=== PATIENT | female | born 1995 | race Caucasian/White ===

== ENCOUNTER 2017-06-18 13:16 | Emergency (ER) | payer SELFPAY ==
[2017-06-18 13:27] VITALS: BP 146/94
[2017-06-18] MEDS ORDERED: PENI500T PO (13:29)
[2017-06-18] MEDS ORDERED: NAPR500T PO (13:29)
--- NOTE | 2017-06-18 13:29 | PHYS DOC ---
Past Medical History Past Medical History: No Pertinent History Past Surgical History: No Surgical History Alcohol Use: None Drug Use: None Adult General Chief Complaint Chief Complaint: DENTAL PROBLEM HPI HPI Patient is a 22 year old female presents to the emergency department with complaints of right upper dental pain. Patient states she's had discomfort for several weeks but is noticed more redness and swelling to the gums. She reports no fever or difficulty with swelling phonation. Review of Systems Review of Systems Constitutional: Denies fever or chills [] Eyes: Denies change in visual acuity, redness, or eye pain [] HENT: Denies nasal congestion or sore throat; complaining of dental pain [] Respiratory: Denies cough or shortness of breath [] Cardiovascular: No additional information not addressed in HPI [] GI: Denies abdominal pain, nausea, vomiting, bloody stools or diarrhea [] : Denies dysuria or hematuria [] Musculoskeletal: Denies back pain or joint pain [] Integument: Denies rash or skin lesions [] Neurologic: Denies headache, focal weakness or sensory changes [] Endocrine: Denies polyuria or polydipsia [] Allergies Allergies Allergies Coded Allergies Type Severity Reaction Last Updated Verified No Known Drug Allergies 09/14/14 No Physical Exam Physical Exam Constitutional: Well developed, well nourished, no acute distress, non-toxic appearance. [] HENT: Normocephalic, atraumatic, bilateral external ears normal, oropharynx moist, right lower teeth, multiple with repair, all teeth are tender. The surrounding gingiva is erythematous. No oral exudates, nose normal. [] Eyes: PERRLA, EOMI, conjunctiva normal, no discharge. [] Neck: Normal range of motion, no tenderness, supple without lymphadenopathy, no stridor. [] Cardiovascular:Heart rate regular rhythm, no murmur [] Lungs & Thorax: Bilateral breath sounds clear to auscultation [ Neurologic: Alert and oriented X 3, normal motor function, normal sensory function, no focal deficits noted. [] Psychologic: Affect normal, judgement normal, mood normal. [] EKG EKG [] Radiology/Procedures Radiology/Procedures [] Course & Med Decision Making Course & Med Decision Making Pertinent Labs and Imaging studies reviewed. (See chart for details) [] Dragon Disclaimer Dragon Disclaimer This electronic medical record was generated, in whole or in part, using a voice recognition dictation system. Departure Departure Impression: Primary Impression: Gingivitis Disposition: 01 HOME, SELF-CARE Condition: STABLE Referrals: UNKNOWN PCP NAME (PCP) [facility] Patient Instructions: Gingivitis Scripts Penicillin V Potassium (PENICILLIN V POTASSIUM) 500 Mg Tablet 1 TAB PO QID, #40 TAB Prov: DANIEL MCKINNON APRN 06/18/17 Naproxen (NAPROSYN) 500 Mg Tablet 500 MG PO BID, #20 TAB Prov: DANIEL MCKINNON APRN 06/18/17 DANIEL MCKINNON APRN Jun 18, 2017 13:29
== END 2017-06-18 13:32 | disposition home or self-care (01) ==
LOC: ER 13:16
DX: K05.10 Chronic gingivitis, plaque induced (principal)
CPT/HCPCS: 99283

== ENCOUNTER 2019-02-17 17:50 | Emergency (ER) | payer SELFPAY ==
[~2019-02-17] VITALS: Ht 157.5 cm; Wt 63.5 kg
[~2019-02-17 17:50] MED LIST: NAPR-683 PO; PENI500T PO
[2019-02-17 18:21] VITALS: BP 136/89
[2019-02-17] MEDS ORDERED: fentaNYL PF VIAL 100 MCG/2 ML VIAL IM ONE (18:30)
[2019-02-17] MEDS ORDERED: ONDANSETRON PF 4 MG/2 ML VIAL. IV ONE (18:30)
[2019-02-17 18:38] LABS: BILIRUBIN,URINE NEGATIVE (NEG); CLARITY,URINE CLEAR; COLOR,URINE YELLOW; NITRITE,URINE NEGATIVE (NEG); PROTEIN,URINE NEGATIVE (NEG-TRACE); UROBILINOGEN,URINE 0.2 mg/dL (0.2 mg/dL)
[2019-02-17 18:42] LABS: BACTERIA,URINE MANY /HPF (0-FEW); RBC,URINE 0 /HPF (0-2); SQUAMOUS EPITHELIAL CELL,UR MOD /LPF
[2019-02-17 18:57] LABS: BASO # 0.1 x10^3/uL (0.0-0.2); BASO % 1 % (0-3); EOS # 0.1 x10^3/uL (0.0-0.7); EOS % 2 % (0-3); HEMATOCRIT 38.8 % (36.0-47.0); HEMOGLOBIN 12.9 g/dL (12.0-15.5); LYMPH # 2.3 x10^3/uL (1.0-4.8); LYMPH % 35 % (24-48); MEAN CORPUSCULAR HEMOGLOBIN 29 pg (25-35); MEAN CORPUSCULAR HGB CONC 33 g/dL (31-37); MEAN CORPUSCULAR VOLUME 86 fL (79-100); MONO # 0.6 x10^3/uL (0.0-1.1); MONO % 9 % (0-9); NEUT # 3.6 x10^3uL (1.8-7.7); NEUT % 54 % (31-73); PLATELET COUNT 212 x10^3/uL (140-400); RED CELL DISTRIBUTION WIDTH 12.4 % (11.5-14.5); WHITE BLOOD COUNT 6.6 x10^3/uL (4.0-11.0)
--- NOTE | 2019-02-17 19:01 | PHYS DOC ---
Past Medical History Past Medical History: Endometriosis Past Surgical History: No Surgical History Additional Information: PT DENIES SMOKING, ALTHOUGH SMOKING HX IN CHART Alcohol Use: None Drug Use: None Adult General Chief Complaint Chief Complaint: ABDOMINAL PAIN HPI HPI Patient is a 23 year old female with history of endometriosis and kidney stones who presents with left sided flank pain onset yesterday. Pain radiates to left abdomen/pelvis. Pain is described as sharp rated moderate to severe and worse with position change and movement. Patient reports nausea but denies vomiting. Reports urinary frequency urgency and hematuria. Patient is currently on her menstrual period. No fever chills or sweats. No other acute symptoms or complaints. No prior abdominal surgeries.] Review of Systems Review of Systems Review of symptoms as per history of present illness. All other review symptoms are negative. All other systems were reviewed and found to be within normal limits, except as documented in this note. Current Medications Current Medications Current Medications Medications (Trade) Dose Ordered Sig/Daniella Start Time Stop Time Status Last Admin Dose Admin Fentanyl Citrate (Fentanyl 2ml Vial) 75 mcg 1X ONCE 02/17/19 18:30 02/17/19 18:35 DC 02/17/19 19:00 75 MCG Ketorolac Tromethamine (Toradol 15mg Vial) 15 mg 1X ONCE 02/17/19 19:15 02/17/19 19:16 Cancel Ketorolac Tromethamine (Toradol 30mg Vial) 30 mg 1X ONCE 02/17/19 20:00 02/17/19 20:03 DC Ondansetron HCl (Zofran) 4 mg 1X ONCE 02/17/19 18:30 02/17/19 18:35 DC 02/17/19 18:57 4 MG Allergies Allergies Allergies Coded Allergies Type Severity Reaction Last Updated Verified No Known Drug Allergies 09/14/14 No Physical Exam Physical Exam Constitutional: Well developed, alert discomfort secondary to pain, antalgic gait. [] HENT: Normocephalic, atraumatic, bilateral external ears normal, oropharynx moist, no oral exudates, nose normal. [] Eyes: PERRLA, EOMI, conjunctiva normal, no discharge. [] Neck: Normal range of motion, no tenderness, supple, no stridor. [] Cardiovascular:Heart rate regular rhythm, no murmur [] Lungs & Thorax: Bilateral breath sounds clear to auscultation [] Abdomen: Bowel sounds normal, soft, mild left lower quadrant pain, tenderness. [] Skin: Warm, dry, no erythema. [] Back: No CVA tenderness. [] Extremities: No tenderness, no cyanosis, no clubbing, ROM intact, no edema. [] Neurologic: Alert and oriented X 3, normal motor function, normal sensory function, no focal deficits noted. [] Psychologic: Affect normal, judgement normal, mood normal. [] Current Patient Data Vital Signs Vital Signs Date Time Temp Pulse Resp B/P (MAP) Pulse Ox O2 Delivery O2 Flow Rate FiO2 02/17/19 19:00 18 95 Room Air 02/17/19 18:21 98.2 94 136/89 (105) 98.2 Lab Values Laboratory Tests Test 02/17/19 18:00 02/17/19 18:01 02/17/19 18:44 Urine Collection Type Unknown Urine Color Yellow Urine Clarity Clear Urine pH 5.0 Urine Specific [place] >=1.030 Urine Protein Negative mg/dL (NEG-TRACE) Urine Glucose (UA) Negative mg/dL (NEG) Urine Ketones (Stick) Negative mg/dL (NEG) Urine Blood Negative (NEG) Urine Nitrite Negative (NEG) Urine Bilirubin Negative (NEG) Urine Urobilinogen Dipstick 0.2 mg/dL (0.2 mg/dL) Urine Leukocyte Esterase Negative (NEG) Urine RBC 0 /HPF (0-2) Urine WBC 1-4 /HPF (0-4) Urine Squamous Epithelial Cells Mod /LPF Urine Bacteria Many /HPF (0-FEW) Urine Mucus Marked /LPF POC Urine HCG, Qualitative Hcg negative (Negative) White Blood Count 6.6 x10^3/uL (4.0-11.0) Red Blood Count 4.50 x10^6/uL (3.50-5.40) Hemoglobin 12.9 g/dL (12.0-15.5) Hematocrit 38.8 % (36.0-47.0) Mean Corpuscular Volume 86 fL (79-100) Mean Corpuscular Hemoglobin 29 pg (25-35) Mean Corpuscular Hemoglobin Concent 33 g/dL (31-37) Red Cell Distribution Width 12.4 % (11.5-14.5) Platelet Count 212 x10^3/uL (140-400) Neutrophils (%) (Auto) 54 % (31-73) Lymphocytes (%) (Auto) 35 % (24-48) Monocytes (%) (Auto) 9 % (0-9) Eosinophils (%) (Auto) 2 % (0-3) Basophils (%) (Auto) 1 % (0-3) Neutrophils # (Auto) 3.6 x10^3uL (1.8-7.7) Lymphocytes # (Auto) 2.3 x10^3/uL (1.0-4.8) Monocytes # (Auto) 0.6 x10^3/uL (0.0-1.1) Eosinophils # (Auto) 0.1 x10^3/uL (0.0-0.7) Basophils # (Auto) 0.1 x10^3/uL (0.0-0.2) Maternal Serum HCG Beta Subunit < 1 mIU/mL (0-5) Sodium Level 141 mmol/L (136-145) Potassium Level 3.5 mmol/L (3.5-5.1) Chloride Level 105 mmol/L (98-107) Carbon Dioxide Level 27 mmol/L (21-32) Anion Gap 9 (6-14) Blood Urea Nitrogen 10 mg/dL (7-20) Creatinine 0.9 mg/dL (0.6-1.0) Estimated GFR (Cockcroft-Gault) 76.3 Glucose Level 56 mg/dL (70-99) L Calcium Level 8.9 mg/dL (8.5-10.1) Laboratory Tests 02/17/19 18:44 Laboratory Tests 02/17/19 18:44 EKG EKG [] Radiology/Procedures Radiology/Procedures [CT abdomen pelvis without contrast: S shaped thoracolumbar spine, no acute abnormalities per radiology report] Course & Med Decision Making Course & Med Decision Making Pertinent Labs and Imaging studies reviewed. (See chart for details) [Patient with back pain, mild pelvic pain, tenderness, no acute findings on CT or lab. Patient does have back pain with scoliosis and chronic pelvic pain related to endometriosis, possibly contributing to current symptoms. Recommend supportive care, watchful waiting and close PCP follow-up. Return precautions reviewed. Patient verbalizes understanding and agreement with discharge instructions prior to departure.] Dragon Disclaimer Dragon Disclaimer This electronic medical record was generated, in whole or in part, using a voice recognition dictation system. Departure Departure Impression: Primary Impression: Lt flank pain Disposition: 01 HOME, SELF-CARE Condition: IMPROVED Referrals: UNKNOWN PCP NAME (PCP) Patient Instructions: Flank Pain, [id number] Additional Instructions: You were evaluated in the emergency department for flank pain. Lab, imaging studies were performed. No diagnosis was made. Please take ibuprofen for pain, and tramadol as Flexeril as needed for additional relief. Take daily laxative to prevent constipation. Follow-up with your PCP in 2-3 days for reevaluation. Return to the ED if new or worsening symptoms. Scripts Cyclobenzaprine Hcl (CYCLOBENZAPRINE HCL) 10 Mg Tablet 1 TAB PO TID, #30 TAB Prov: SARAH MENDENHALL DO 02/17/19 Tramadol Hcl (TRAMADOL HCL) 50 Mg Tablet 50 MG PO Q6H PRN for PAIN for 3 Days, #10 TAB 0 Refills Prov: SARAH MENDENHALL DO 02/17/19 SARAH MENDENHALL DO February 17, 2019 19:01
[2019-02-17 19:07] LABS: CALCIUM 8.9 mg/dL (8.5-10.1); CREATININE 0.9 mg/dL (0.6-1.0); GFR 76.3; POTASSIUM 3.5 mmol/L (3.5-5.1)
[2019-02-17] MEDS ORDERED: KETOROLAC 15 MG/ML VIAL. IV ONE (19:15)
[2019-02-17] MEDS ORDERED: KETOROLAC 30 MG/ML VIAL. IM ONE (20:00)
--- NOTE | 2019-02-17 20:12 | RAD ---
CT scan abdomen and pelvis without contrast 02/17/2019 CLINICAL HISTORY: Left flank pain. TECHNIQUE: Unenhanced, contiguous, 2 mm axial sections were obtained through the abdomen and pelvis. One or more of the following individualized dose reduction techniques were utilized for this study: 1. Automated exposure control. 2. Adjustment of the mA and/or kV according to patient size. 3. Use of iterative reconstruction technique. FINDINGS: Images through the lung bases demonstrate minimal dependent subsegmental atelectasis bilaterally. The liver, spleen, pancreas, and adrenal glands are within normal limits. No renal or ureteral calculus is seen. There is no evidence of obstruction of either collecting system. The abdominal aorta tapers normally. The gallbladder is contracted. No free fluid or free air is seen within the abdomen. Air and stool is seen throughout the colon. There is no evidence of bowel obstruction. The appendix is well-visualized and is within normal limits. Images through the pelvis into the urinary bladder distended with urine. No adnexal mass is seen. No free fluid is noted. Minimal S-shaped curvature of the thoracolumbar spine is seen. IMPRESSION: No acute abnormality is seen. Electronically signed by: Luke Zapien MD (02/17/2019 8:09 PM) [facility]
[2019-02-17] MEDS ORDERED: TRAM50TA PO (20:23)
[2019-02-17] MEDS ORDERED: CYCL10TA2 PO (20:23)
== END 2019-02-17 20:41 | disposition home or self-care (01) ==
LOC: ER 17:50
DX: R10.32 Left lower quadrant pain (principal); R31.9 Hematuria, unspecified; R35.0 Frequency of micturition; R39.15 Urgency of urination; M41.80 Other forms of scoliosis, site unspecified; G89.29 Other chronic pain
CPT/HCPCS: 36415; 74176; 80048; 81001; 81025; 84702; 85025; 87086; 96372; 96374; 99285; J2405; J3010; 99284-25

== ENCOUNTER 2019-05-12 18:03 | Emergency (ER) | payer SELFPAY ==
[~2019-05-12] VITALS: Ht 157.5 cm; Wt 59.0 kg
[~2019-05-12 18:03] MED LIST changes: +CYCL10TA2 PO; +TRAM50TA PO
[2019-05-12 18:39] LABS: BILIRUBIN,URINE NEGATIVE (NEG); CLARITY,URINE CLEAR; COLOR,URINE YELLOW; NITRITE,URINE NEGATIVE (NEG); PROTEIN,URINE NEGATIVE (NEG-TRACE); UROBILINOGEN,URINE 0.2 mg/dL (0.2 mg/dL)
[2019-05-12 18:44] LABS: BACTERIA,URINE 0 /HPF (0-FEW); RBC,URINE 0 /HPF (0-2); SQUAMOUS EPITHELIAL CELL,UR FEW /LPF; WBC,URINE 0 /HPF (0-4)
[2019-05-12] MEDS ORDERED: ONDANSETRON PF 4 MG/2 ML VIAL. IV ONE (19:00)
[2019-05-12] MEDS ORDERED: KETOROLAC 30 MG/ML VIAL. IV ONE (19:00)
--- NOTE | 2019-05-12 19:02 | PHYS DOC ---
Past Medical History Past Medical History: Endometriosis, Other Additional Past Medical Histor: ENDOMETRIOSIS Past Surgical History: No Surgical History Smoking: Cigarettes Alcohol Use: None Drug Use: None Adult General Chief Complaint Chief Complaint: ABDOMINAL PAIN HPI HPI 23-year-old female presents with report of chronic pelvic pain which started yesterday. Patient reports symptoms have been worse over the last several months but she has had for years. Patient reports she has a past medical history of endometriosis and also was told she might have some ovarian cysts. Patient reports last menstrual period was the end of April. Denies . Reports some associated nausea and diarrhea. Denies fever or chills. Denies dysuria or hematuria. Denies known sick contacts. Patient does report she was tested for STDs 2 weeks ago and was told it was "normal ". Patient does report since then she has had some vaginal discharge. Patient does report she has been sexually active since being tested. Review of Systems Review of Systems Constitutional: Denies fever or chills Eyes: Denies redness or eye pain HENT: Denies nasal congestion or sore throat Respiratory: Denies cough or shortness of breath Cardiovascular: Denies chest pain or palpitations GI: Reports lower abdominal pain, nausea, and diarrhea : Denies dysuria or hematuria; reports vaginal discharge and pelvic pain Musculoskeletal: Denies back pain or joint pain Integument: Denies rash or skin lesions Neurologic: Denies headache, focal weakness or sensory changes Complete systems were reviewed and found to be within normal limits, except as documented in this note. Current Medications Current Medications Current Medications Medications (Trade) Dose Ordered Sig/Daniella Start Time Stop Time Status Last Admin Dose Admin Dicyclomine HCl (Bentyl) 20 mg 1X ONCE 05/12/19 20:00 05/12/19 20:01 DC 05/12/19 20:09 20 MG Fentanyl Citrate (Fentanyl 2ml Vial) 50 mcg 1X ONCE 05/12/19 19:15 05/12/19 19:16 DC 05/12/19 19:18 50 MCG Ketorolac Tromethamine (Toradol 30mg Vial) 15 mg 1X ONCE 05/12/19 19:00 05/12/19 19:14 DC Ondansetron HCl (Zofran) 4 mg 1X ONCE 05/12/19 19:00 05/12/19 19:01 DC 05/12/19 19:06 4 MG Allergies Allergies Allergies Coded Allergies Type Severity Reaction Last Updated Verified ketorolac Allergy Unknown 05/12/19 Yes tramadol Allergy Unknown 05/12/19 Yes Physical Exam Physical Exam Constitutional: Well developed, well nourished, no acute distress, non-toxic appearance HENT: Normocephalic, atraumatic, oropharynx moist Eyes: PERRL, EOMI, conjunctiva normal, no discharge Neck: Normal range of motion, no tenderness, supple Cardiovascular: Heart rate normal, regular rhythm Lungs & Thorax: Bilateral breath sounds clear to auscultation, no wheezing Abdomen: Soft, no tenderness on palpation, nondistended, no guarding, no rebound tenderness Pelvic exam: Mey Barbosa RN, External genitalia normal, No discharge noted, no active bleeding, No CMT, left adnexal tenderness Skin: Warm, dry, no erythema, no rash Back: No tenderness, no CVA tenderness Extremities: No tenderness, ROM intact, no edema Neurologic: Alert and oriented X 3, normal motor function, normal sensory function, no focal deficits noted Psychologic: Affect normal, judgement normal, mood normal Current Patient Data Vital Signs Vital Signs Date Time Temp Pulse Resp B/P (MAP) Pulse Ox O2 Delivery O2 Flow Rate FiO2 05/12/19 20:20 82 19 119/70 (86) 99 Room Air 05/12/19 18:20 98.7 98.7 Lab Values Laboratory Tests Test 05/12/19 18:30 05/12/19 18:34 05/12/19 19:00 Urine Collection Type Unknown Urine Color Yellow Urine Clarity Clear Urine pH 7.0 Urine Specific [place] 1.015 Urine Protein Negative mg/dL (NEG-TRACE) Urine Glucose (UA) Negative mg/dL (NEG) Urine Ketones (Stick) Negative mg/dL (NEG) Urine Blood Negative (NEG) Urine Nitrite Negative (NEG) Urine Bilirubin Negative (NEG) Urine Urobilinogen Dipstick 0.2 mg/dL (0.2 mg/dL) Urine Leukocyte Esterase Negative (NEG) Urine RBC 0 /HPF (0-2) Urine WBC 0 /HPF (0-4) Urine Squamous Epithelial Cells Few /LPF Urine Bacteria 0 /HPF (0-FEW) POC Urine HCG, Qualitative Hcg negative (Negative) White Blood Count 6.8 x10^3/uL (4.0-11.0) Red Blood Count 4.54 x10^6/uL (3.50-5.40) Hemoglobin 13.5 g/dL (12.0-15.5) Hematocrit 39.1 % (36.0-47.0) Mean Corpuscular Volume 86 fL (79-100) Mean Corpuscular Hemoglobin 30 pg (25-35) Mean Corpuscular Hemoglobin Concent 34 g/dL (31-37) Red Cell Distribution Width 12.4 % (11.5-14.5) Platelet Count 203 x10^3/uL (140-400) Neutrophils (%) (Auto) 56 % (31-73) Lymphocytes (%) (Auto) 33 % (24-48) Monocytes (%) (Auto) 9 % (0-9) Eosinophils (%) (Auto) 1 % (0-3) Basophils (%) (Auto) 1 % (0-3) Neutrophils # (Auto) 3.8 x10^3/uL (1.8-7.7) Lymphocytes # (Auto) 2.2 x10^3/uL (1.0-4.8) Monocytes # (Auto) 0.6 x10^3/uL (0.0-1.1) Eosinophils # (Auto) 0.0 x10^3/uL (0.0-0.7) Basophils # (Auto) 0.1 x10^3/uL (0.0-0.2) Sodium Level 141 mmol/L (136-145) Potassium Level 3.7 mmol/L (3.5-5.1) Chloride Level 103 mmol/L (98-107) Carbon Dioxide Level 30 mmol/L (21-32) Anion Gap 8 (6-14) Blood Urea Nitrogen 11 mg/dL (7-20) Creatinine 0.9 mg/dL (0.6-1.0) Estimated GFR (Cockcroft-Gault) 76.3 BUN/Creatinine Ratio 12 (6-20) Glucose Level 84 mg/dL (70-99) Calcium Level 9.2 mg/dL (8.5-10.1) Magnesium Level 1.8 mg/dL (1.8-2.4) Total Bilirubin 0.4 mg/dL (0.2-1.0) Aspartate Amino Transferase (AST) 12 U/L (15-37) L Alanine Aminotransferase (ALT) 16 U/L (14-59) Alkaline Phosphatase 65 U/L (46-116) Total Protein 7.6 g/dL (6.4-8.2) Albumin 3.9 g/dL (3.4-5.0) Albumin/Globulin Ratio 1.1 (1.0-1.7) Lipase 109 U/L (73-393) Laboratory Tests 05/12/19 19:00 Laboratory Tests 05/12/19 19:00 Microbiology 05/12/19 Wet Prep - Final, Complete EKG EKG [] Radiology/Procedures Radiology/Procedures PROCEDURE: PELVIS W/TV EXAM: PELVIC ULTRASOUND. HISTORY: Pelvic pain. COMPARISON: 02/17/2019. FINDINGS: Sonographic evaluation of the pelvis was performed transabdominally and transvaginally. The uterus is anteverted and measures 7.7 x 4.5 x 3.4 cm. The endometrial stripe measures 4 mm. No masses are identified. There is no significant free fluid. The right ovary measures 3.3 x 2.2 x 1.9 cm. The left ovary measures 3.1 x 2.5 x 1.9 cm. There is normal Doppler flow bilaterally. There are no suspicious lesions. IMPRESSION: 1. No cause for pain is identified. Electronically signed by: Jamal Rivers MD (05/12/2019 8:15 PM) [facility] Course & Med Decision Making Course & Med Decision Making Pertinent Labs and Imaging studies reviewed. (See chart for details) Patient presents with history of lower abdominal pain. Reports worse over the last few days. Patient reportedly has had for "years". Hx of endometriosis and reports history of ovarian cyst. Pelvis exam performed. Chlamydia/Gonorrhea culture pending. Patient declined empiric antibiotic therapy. Wet mount positive for Clue cells. Flagyl provided. Pain addressed (patient initially reports no allergy, but when ketorolac ordered now reporting allergy to Ketora lac and Toradol). Patient at one moment crying and saying how horrible the pain is and next is texting on her phone. Phone called received from patient's mother, who reports patient recent seen at for opiate overdose requiring Narcan. Concern for drug seeking behavior. Bentyl therefore given for continued pain. IVF hydration given. Pelvic US negative. Patient stable for discharge with outpatient follow-up with PCP/[facility]. [facility] referral provided. Discussed findings and plan with patient, who acknowledges understanding and agreement. Linda Disclaimer Shylaon Disclaimer This electronic medical record was generated, in whole or in part, using a voice recognition dictation system. Departure Departure Impression: Primary Impression: Pelvic pain Additional Impression: Bacterial vaginosis Disposition: HOME, SELF-CARE Condition: STABLE Referrals: NO PCP (PCP) BINTA CAMARGO MD Patient Instructions: Bacterial Vaginosis, [id number], Pelvic Pain, Female, [id number] Scripts Metronidazole (FLAGYL) 500 Mg Tablet 500 MG PO BID, #14 TAB Prov: HUNTER MCKNIGHT DO 05/12/19 Famotidine (PEPCID) 20 Mg Tablet 20 MG PO BID, #14 TAB Prov: HUNTER MCKNIGHT DO 05/12/19 Ondansetron (ONDANSETRON ODT) 4 Mg Tab.rapdis 1 TAB PO PRN Q6-8HRS PRN for NAUSEA, #16 TAB Prov: HUNTER MCKNIGHT DO 05/12/19 Hyoscyamine Sulfate (LEVSIN-SL) 0.125 Mg Tab.subl 1 TAB SL PRN Q4HRS PRN for PAIN, #20 TAB Prov: HUNTER MCKNIGHT DO 05/12/19 Problem Qualifiers HUNTER MCKNIGHT DO May 12, 2019 19:02
[2019-05-12 19:07] LABS: BASO # 0.1 x10^3/uL (0.0-0.2); BASO % 1 % (0-3); EOS % 1 % (0-3); HEMATOCRIT 39.1 % (36.0-47.0); HEMOGLOBIN 13.5 g/dL (12.0-15.5); LYMPH # 2.2 x10^3/uL (1.0-4.8); LYMPH % 33 % (24-48); MEAN CORPUSCULAR HEMOGLOBIN 30 pg (25-35); MEAN CORPUSCULAR HGB CONC 34 g/dL (31-37); MEAN CORPUSCULAR VOLUME 86 fL (79-100); MONO # 0.6 x10^3/uL (0.0-1.1); MONO % 9 % (0-9); NEUT # 3.8 x10^3/uL (1.8-7.7); NEUT % 56 % (31-73); PLATELET COUNT 203 x10^3/uL (140-400); RED BLOOD COUNT 4.54 x10^6/uL (3.50-5.40); RED CELL DISTRIBUTION WIDTH 12.4 % (11.5-14.5); WHITE BLOOD COUNT 6.8 x10^3/uL (4.0-11.0)
[2019-05-12] MEDS ORDERED: fentaNYL PF VIAL 100 MCG/2 ML VIAL IV ONE (19:15)
[2019-05-12 19:19] LABS: CALCIUM 9.2 mg/dL (8.5-10.1); CREATININE 0.9 mg/dL (0.6-1.0); GFR 76.3; POTASSIUM 3.7 mmol/L (3.5-5.1)
[2019-05-12 19:25] LABS: ALBUMIN 3.9 g/dL (3.4-5.0); ALBUMIN/GLOBULIN RATIO 1.1 (1.0-1.7); MAGNESIUM 1.8 mg/dL (1.8-2.4); TOTAL BILIRUBIN 0.4 mg/dL (0.2-1.0); TOTAL PROTEIN 7.6 g/dL (6.4-8.2)
[2019-05-12] MEDS ORDERED: DICYCLOMINE 20 MG/2 ML AMPUL. IM ONE (20:00)
[2019-05-12] MEDS ORDERED: HYOS0.1265 SL (20:17)
[2019-05-12] MEDS ORDERED: ONDA4TAB12 PO (20:17)
[2019-05-12] MEDS ORDERED: FAMO-63 PO (20:17)
--- NOTE | 2019-05-12 20:18 | RAD ---
EXAM: PELVIC ULTRASOUND. HISTORY: Pelvic pain. COMPARISON: 02/17/2019. FINDINGS: Sonographic evaluation of the pelvis was performed transabdominally and transvaginally. The uterus is anteverted and measures 7.7 x 4.5 x 3.4 cm. The endometrial stripe measures 4 mm. No masses are identified. There is no significant free fluid. The right ovary measures 3.3 x 2.2 x 1.9 cm. The left ovary measures 3.1 x 2.5 x 1.9 cm. There is normal Doppler flow bilaterally. There are no suspicious lesions. IMPRESSION: 1. No cause for pain is identified. Electronically signed by: Jamal Rivers MD (05/12/2019 8:15 PM) [facility]
[2019-05-12] MEDS ORDERED: METR500T PO (20:45)
[2019-05-12] MEDS ORDERED: metroNIDAZOLE 500 MG TABLET PO ONE (20:45)
[2019-05-12 20:46] LABS: BARBITURATES NEG (NEG); BENZODIAZEPINES NEG (NEG); CANNABINOIDS NEG (NEG); COCAINE NEG (NEG); METHADONE NEG (NEG); OPIATES NEG (NEG); PHENCYCLIDINE NEG (NEG)
[2019-05-12 20:47] LABS: AMPHETAMINE/METHAMPHETAMINE NEG (NEG)
[2019-05-12 20:50] VITALS: BP 162/65
[2019-05-16 17:09] LABS: GC PROBE Negative (Negative)
== END 2019-05-12 21:12 | disposition home or self-care (01) ==
LOC: ER 18:03
DX: G89.29 Other chronic pain (principal); R10.2 Pelvic and perineal pain; N76.0 Acute vaginitis; B96.89 Other specified bacterial agents as the cause of diseases classified elsewhere; R19.7 Diarrhea, unspecified; F17.210 Nicotine dependence, cigarettes, uncomplicated; Z88.6 Allergy status to analgesic agent
CPT/HCPCS: 36415; 76830; 76856; 80053; 80307; 81001; 81025; 83690; 83735; 85025; 87491; 87591; 96372; 96374; 96375; 99285; J0500; J2405; J3010; Q0111

== ENCOUNTER 2019-09-13 16:11 | Emergency (ER) | payer SELFPAY ==
[~2019-09-13] VITALS: Ht 157.5 cm; Wt 55.8 kg
[~2019-09-13 16:11] MED LIST changes: +FAMO-63 PO; +HYOS0.1265 SL; +METR500T PO; +ONDA4TAB12 PO
[2019-09-13 17:59] LABS: BASO % 0 % (0-3); EOS % 0 % (0-3); HEMATOCRIT 37.8 % (36.0-47.0); LYMPH # 2.5 x10^3/uL (1.0-4.8); LYMPH % 29 % (24-48); MEAN CORPUSCULAR HEMOGLOBIN 29 pg (25-35); MEAN CORPUSCULAR HGB CONC 34 g/dL (31-37); MEAN CORPUSCULAR VOLUME 86 fL (79-100); MONO # 0.7 x10^3/uL (0.0-1.1); MONO % 8 % (0-9); NEUT # 5.4 x10^3/uL (1.8-7.7); NEUT % 62 % (31-73); PLATELET COUNT 212 x10^3/uL (140-400); RED BLOOD COUNT 4.41 x10^6/uL (3.50-5.40); RED CELL DISTRIBUTION WIDTH 12.6 % (11.5-14.5); WHITE BLOOD COUNT 8.7 x10^3/uL (4.0-11.0)
[2019-09-13] MEDS: ONDANSETRON PF 4 MG/2 ML VIAL. IV ONE (18:04)
[2019-09-13] MEDS: IV NORMAL SALINE 1000ML BAG 1,000 ML IV ONE (18:04)
[2019-09-13] MEDS: fentaNYL PF VIAL 100 MCG/2 ML VIAL IVP ONE ×2 (18:04→19:11)
[2019-09-13 18:09] LABS: CREATININE 0.8 mg/dL (0.6-1.0); GFR 86.7; POTASSIUM 3.1 mmol/L (3.5-5.1)
[2019-09-13 18:12] LABS: PROTHROMBIN TIME PATIENT 13.2 SEC (11.7-14.0)
[2019-09-13 18:16] LABS: ALBUMIN 3.9 g/dL (3.4-5.0); ALBUMIN/GLOBULIN RATIO 1.2 (1.0-1.7); TOTAL BILIRUBIN 0.4 mg/dL (0.2-1.0); TOTAL PROTEIN 7.1 g/dL (6.4-8.2)
[2019-09-13] MEDS ORDERED: IOHEXOL 300 MG/ML 100ML VIAL. IV ONE (18:45)
[2019-09-13] MEDS ORDERED: CONTRAST GIVEN. MC PRN (18:45)
[2019-09-13 19:39] LABS: BILIRUBIN,URINE NEGATIVE (NEG); CLARITY,URINE CLEAR; COLOR,URINE YELLOW; NITRITE,URINE NEGATIVE (NEG); PROTEIN,URINE NEGATIVE (NEG-TRACE)
[2019-09-13 19:47] LABS: BACTERIA,URINE 0 /HPF (0-FEW); RBC,URINE 0 /HPF (0-2); SQUAMOUS EPITHELIAL CELL,UR OCC /LPF; WBC,URINE OCC /HPF (0-4)
[2019-09-13 20:14] LABS: AMPHETAMINE/METHAMPHETAMINE NEG (NEG); BARBITURATES NEG (NEG); BENZODIAZEPINES POS (NEG); CANNABINOIDS POS (NEG); COCAINE POS (NEG); METHADONE NEG (NEG); OPIATES NEG (NEG); PHENCYCLIDINE NEG (NEG)
[2019-09-13 20:31] VITALS: BP 118/73
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
--- NOTE | 2019-09-14 00:06 | RAD ---
Examination: 2 views of the right hip and frontal view of the pelvis HISTORY: History of fall COMPARISON: None available. FINDINGS: The bilateral femoral heads within the acetabula. There is no acute fracture or dislocation identified. IMPRESSION: No acute osseous findings. Electronically signed by: Dillon Scott MD (09/14/2019 12:03 AM) [id number]
--- NOTE | 2019-09-14 00:27 | RAD ---
RIBS RIGHT AND PA CHEST History: Fall Comparison: None. Findings: Single view of the chest and 3 additional views of the right ribs are submitted. There is no infiltrate, pleural fluid, pneumothorax. Cardiac silhouette is within normal limits. No displaced right rib fracture is identified by radiographs. Impression: 1. No acute radiographic abnormality is identified. Electronically signed by: Jeffery Anderson MD (09/14/2019 12:24 AM) [facility]
== END 2019-09-13 20:32 | disposition left against medical advice (07) ==
LOC: ER 16:11
DX: S70.01XA Contusion of right hip, initial encounter (principal); M54.5 Low back pain; R11.11 Vomiting without nausea; M25.551 Pain in right hip; R07.81 Pleurodynia; N80.9 Endometriosis, unspecified; F12.90 Cannabis use, unspecified, uncomplicated; F14.90 Cocaine use, unspecified, uncomplicated; Z88.6 Allergy status to analgesic agent; Z98.890 Other specified postprocedural states; Z79.899 Other long term (current) drug therapy
CPT/HCPCS: 36415; 71101; 73502; 80053; 80307; 81001; 81025; 85025; 85610; 96361; 96374; 96375; 99285; J2405; J3010; J7030